=== PATIENT | female | born 1960 | race African-American/Black ===

== ENCOUNTER 2017-06-15 11:25 | Emergency (ER) | payer OTHER ==
[~2017-06-15] VITALS: Ht 152.4 cm; Wt 127.0 kg
[2017-06-15] MEDS ORDERED: ATEN-42 PO (11:31)
[2017-06-15] MEDS ORDERED: IBUPROFEN 600MG TABLET PO ONE (13:15)
[2017-06-15 15:28] VITALS: BP 152/78
== END 2017-06-15 16:32 | disposition home or self-care (01) ==
LOC: ER 12:51
DX: M17.9 Osteoarthritis of knee, unspecified (principal)
CPT/HCPCS: 73562; 99284